=== PATIENT | female | born 1975 | race Two or more races ===

== ENCOUNTER 2018-12-12 07:13 | Day surgery (SDC) | payer OTHER ==
[~2018-12-12 07:13] MED LIST: COUMADIN7.5 MG PO; FERRO-TIME325 MG PO; FORTAMET1000 MG PO; GLIMEPIRIDE2 MG PO; JARDIANCE25 MG PO; LIPITOR20 MG PO; LOSARTAN-HCTZ1 EAC1 PO; NEURONTIN300 MG PO; NORVASC5 MG PO; TOPROL XL50 M1 PO; TRILIPIX135 MG PO
[2018-12-12] MEDS ORDERED: TRAMADOL HCL50 MG PO (13:24)
== END 2018-12-12 16:55 | disposition home or self-care (01) ==
LOC: CIR.AMB 07:13
DX: N85.01 Benign endometrial hyperplasia (principal); N84.0 Polyp of corpus uteri

== ENCOUNTER 2018-12-12 08:22 | Outpatient (CLI) | payer OTHER ==
[2018-12-12] MEDS ORDERED: TRAMADOL HCL50 MG PO (13:24)
== END 2018-12-12 08:32 | disposition home or self-care (01) ==
LOC: LAB 08:22
DX: D68.8 Other specified coagulation defects (principal)